=== PATIENT | male | born 1970 | race Caucasian/White ===

== ENCOUNTER 2021-11-28 17:21 | Emergency (ER) | payer OTHER, SELFPAY ==
[2021-11-28 17:35] VITALS: BP 137/76; RESP 18
[2021-11-28 17:36] VITALS: PULSE 83; O2SAT 98
[2021-11-28 17:43] VITALS: TEMP 36.8
--- NOTE | 2021-11-28 17:56 | ED.ALLEREA ---
HPI - Allergic Reaction <YOLANDA Stallings Last Filed: 11/28/21 18:33> General Chief complaint: Allergic Reaction Stated complaint: Stung on right hand, swelling, pain for 4 hours Time Seen by Provider: 11/28/21 17:44 History of Present Illness HPI narrative: Patient is a 51-year-old male presents to emergency room today with complaint of pain and swelling to his right hand started after he felt what felt like a sting to his right hand while pumpkin picking today about 1 states that after he was pushing his wheelchair back he noticed a little pain in his hand that was about 9 scale for about 15 minutes and then it immediately started to resolve. States that after that the pain started to resolve in the hand started to swell. States that he in his right thumb went to store and purchased and Benadryl were he took 2 tablets of Benadryl. States that the hand swelling has lessened in that he has the hand on ice until this point. 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 Only allergic reaction he can remember is 1 to a possible type of nut. States he had swelling of his chest and arms but has never eaten that type of reaction again since that time. Denies chest pain shortness of breath or swelling or redness in any other areas.. Related Data Allergies Allergy/AdvReac Type Severity Reaction Status Date / Time tree nut [TREE NUT] Allergy Severe FILBERTS-SWOLLEN Verified 11/28/21 18:13 TONGUE, RED ITCHY SWOLLEN HEAD, SOB Review of Systems <Jose Raul Loomis PA-C - Last Filed: 11/28/21 18:33> Review of Systems Narrative: R.O.S.: General: No fever, chills or fatigue. Cardiovascular: No chest pain or palpitations Respiratory: No S.O.B. HEENT: No congestion, ear pain, rhinorrhea, sore throat or tinnitus Gastrointestinal: No nausea or vomiting : No urinary concerns Skin: Swelling of right hand Musculoskeletal: No pain in muscles or joints, no limitation of range of motion, no paresthesia or numbness. ?? Neurological: Awake, alert and in not apparent distress. No Headaches, changes in vision or other related neurological concerns. Exam <Jose Raul Loomis PA-C - Last Filed: 11/28/21 18:33> Narrative Exam Narrative: Physical Exam: ? General: normal appearance, well developed, well nourished, alert, and awake. Not in acute distress. ? Head: Normocephalic, no lesions. Chest: Lungs CTAB, no rales, rhonchi or wheezes. ?? Heart: RRR, no murmurs, rubs or gallops. Eyes: PERRLA, EOM's full, conjunctivae clear. ? Neuro: Physiological, no localizing findings, CN3-12 intact. ?? Extremities: Patient has moderate swelling to his right hand proximal to the 4th and 5th dorsal metacarpal areas. The hand has good strength intact sensation to touch and good capillary refill. And also has intact sensorium and motor responses to ulnar radial and medial nerves in the right hand. Skin: Normal, no rashes, no lesions noted. ?? PSYCHIATRIC: The mood is good, no blunted affect. Speech is clear. Thought process is linear, thought content is appropriate. The voice is without significant inflection. Gastrointestinal: Soft; NT; ND; Pos BS with Neg. rebound tenderness. No scars or major deformities noted on Visual Inspection. Initial Vital Signs Initial Vital Signs: Vital Signs Respiratory Rate 18 11/28/21 17:35 Blood Pressure 137/76 11/28/21 17:35 <DO Marilia Manzanares Last Filed: 11/28/21 22:30> Initial Vital Signs Initial Vital Signs: Vital Signs Respiratory Rate 18 11/28/21 17:35 Blood Pressure 137/76 11/28/21 17:35 Course <Jose Raul Loomis PA-C - Last Filed: 11/28/21 18:33> Vital Signs Vital signs: Vital Signs - 8 hr 11/28/21 17:43 11/28/21 17:35 11/28/21 17:36 Temperature 98.3 F Pulse Rate 83 Respiratory Rate 18 Blood Pressure 137/76 Pulse Oximetry 98 Oxygen Delivery Method Room Air <DO Marilia Manzanares Last Filed: 11/28/21 22:30> Vital Signs Vital signs: Vital Signs - 8 hr 11/28/21 17:43 11/28/21 17:35 11/28/21 17:36 Temperature 98.3 F Pulse Rate 83 Respiratory Rate 18 Blood Pressure 137/76 Pulse Oximetry 98 Oxygen Delivery Method Room Air MDM - Allergic Reaction <Jose Raul Loomis PA-C - Last Filed: 11/28/21 18:33> MDM Narrative Medical decision making narrative: To the emergency room with swelling right hand after a possible bug bite or sting. Swelling is resolving patient has taken Benadryl and states he is Benadryl at home and has no concerns at this time. Plan is to monitor the patient for about half an hour and discharge patient in no urgent emergent concerns arise. Patient decided he does not want to be monitored states he wants to be discharged at this time. Patient states he is okay with taking the Benadryl as ordered and will return to the emergency room if any emergent concerns arise. Discharge Plan Departure Patient Disposition: Home Clinical Impression: Allergic reaction Instructions: DI for Anaphylaxis Activity Restrictions/Additional Instructions: *You have been diagnosed with a local allergic reaction to what appears to be a bite or sting. After monitoring does not look like reaction is worsening. I suggest you continue to take Benadryl every 6-8 hours at a dose of 25-50 mg. No ear 24 hour dosing of Benadryl should never exceed 300 mg. Also suggest she return to the emergency room show any emergent concerns arise. [ ] *What to do: *Please continue to take your regular medications as directed. [ ] New medication prescriptions sent to your pharmacy [ ] New medication written as a paper prescription [x] No new medications given *Please follow up with your primary care provider in 2-3 days, call for an appointment. Let them know you were seen in the Emergency Department and that we ask that you be seen in follow up. We will electronically transmit a record of today's note if your PCP is in our system *If you do not have a primary care provider please contact the [facility] Resource line at [phone]. They will ask some questions about your medical history and help get you set up with a doctor in the community. *Return to Emergency Department if you should have any new, worsening or concerning symptoms, such as [fever greater than 101 F, shaking chills, worsening pain, persistent vomiting or other bothersome symptoms] Referrals: Luly Buck PA-C [Primary Care Provider] - Visit Report Forms: Patient Portal/API <Amado Henriquez DO - Last Filed: 11/28/21 22:30> Cosign ED Attending Cosignature Attestation: Dr Henriquez Co-Sign Statement: I was available for consultation during this patient's emergency department visit. This chart is signed by myself for administrative purposes only. I did not have direct contact with this patient during this visit. They were seen independently by the APC.
== END 2021-11-28 18:46 | disposition home or self-care (01) ==
PROVIDERS: Emergency Provider Physician Assistant; PCP Physician Assistant
DX: T78.40XA Allergy, unspecified, initial encounter (principal)
CPT/HCPCS: 99281